=== PATIENT | male | born 1960 | race Caucasian/White ===

== ENCOUNTER 2023-11-07 06:13 | Day surgery (SDC) | payer BC, SELFPAY ==
--- NOTE | 2023-10-16 08:24 | CM ---
Addendum entered by Rosetta Orellana 11/06/23 06:50:
VN referral completed and sent to [facility] through [facility] with request for start of care on 11/09. Confirmation received of their ability to accept case within 24-48 hours of discharge. cost report clerk to fax discharge instructions to [facility] when
complete. [facility] fax: [phone].
Original Note:
Patient has a fractured proximal end of R humerus and is scheduled for a R Reverse TSA on 11/07/23. Spoke with patient prior to surgery. Introduced role of Orthopedic Navigator. Patient reports that he lives alone in a one story home. There is one
step to enter. Currently he functions independently. He occasionally wears a sling. He has a cane and shower seat. He was receiving VN services through [facility] at the time of our conversation. He has been in [facility] and [facility]. PCP
is Dr. Jostete Razo.
Discussed orthopedic program and post surgical plans. Reviewed anticipated length of stay and assistance that he may need at discharge. Explained that goal is for him to return home at discharge. Also reviewed MD follow up and transition to
outpatient therapy. Patient is in agreement with tentative plan and states that he will have support from multiple family members and will have someone stay with him. He will likely benefit from VN services at discharge.
Patient will complete online education.
Plan: Orthopedic Navigator will be involved in the care of patient after surgery and will reassess discharge needs at that time.
[2023-10-18 14:06] VITALS: BMI 32.2
[2023-10-18 15:31] VITALS: BMI 32.2
[2023-11-07] VITALS (12 sets, daily range): BP systolic 97–132; BP diastolic 56–97; PULSE 87–143; O2SAT 96; BMI 32.2
[2023-11-07] MEDS: NORMOSOL-R 1000 IV ×2 (07:18→11:22)
[2023-11-07] MEDS: VANCOCIN 300 ML IV (07:19)
[2023-11-07] MEDS: VANCOCIN 300 MG IV (07:19)
[2023-11-07] MEDS: TYLENOL 1000 MG PO (07:21)
[2023-11-07] MEDS: CELEBREX 200 MG PO (07:21)
[2023-11-07] MEDS: BACTROBAN NASAL 1 GRAM NASAL (07:22)
[2023-11-07] MEDS: CARDIZEM 15 MG PO (11:45)
--- NOTE | 2023-11-07 12:20 | PTCARENOTE ---
Patient admitted from pacu post right reverse total shoulder arthroplasty.Vital signs are stable.The Aquacell dressing in the right shoulder is clean and dry.The patient denies having any pain.Neurovascular assessment was within normal limits and
ongoing.The patient is in his bed with the call hensley.His family is at the bedside.
[2023-11-07] MEDS: SYNTHROID 25 MCG PO (12:45)
[2023-11-07] MEDS: VITAMIN B1 100 MG PO (12:45)
[2023-11-07] MEDS: FOLVITE 1 MG PO (12:45)
[2023-11-07] MEDS: VITAMIN D3 (cholecalciferol) 25 MCG PO (12:45)
--- NOTE | 2023-11-07 12:49 | CM ---
Reviewed chart and met with patient, brother and sister in law at bedside. Patient admitted from planned R REVERSE TSA. Confirmed information previously obtained for case management assessment and discuss discharge plans. The plan is for patient
to return home at discharge. He will have support from his family but no one will be living with him. He will have PT, OT and RN from [facility]. Referral sent and accepted by [facility].
Discussed MD follow up on 11/21/23.
The patient will use [facility] for discharge prescriptions.
PLAN: home with [facility]
--- NOTE | 2023-11-07 13:29 | CON.CAR ---
Addendum entered and electronically signed by Homer Addison MD 11/07/23 16:29:
63 yo male with PMH of persistent A fib admitted after orthopedic surgery. We are consulted for A fb with RVR post op. Patient had not taken diltiazem recently. No palps, SOB. Exam with irregular rhythm, no murmurs, no edema. Tele: A fib 110s.
Add diltiazem 120mg daily.
CHADS2-VASC = 0. OAC not indicated for his A fib.
Original Note:
Consultation
Consultation Request
Date/Time Consultation Requested: 11/07/23 13:19
Date/Time Consultation Performed: 11/07/23 13:45
Requesting Provider: Ashlie Graves PA-C
Performing Provider: CATARINA Avila for Dr. Addison
Reason for Consultation: Atrial fibrillation management
Medical History
-
Chief Complaint: Right humeral fracture
History of Present Illness:
Patient is a 63-year-old male (known to Dr. Gandhi, his primary product management consultant), with persistent atrial fibrillation (not on oral anticoagulation), dyslipidemia, hypothyroidism, tricuspid regurgitation, and prior alcohol misuse (with rehab
completion), who presented for right reverse TSA due to fracture of proximal end of right humerus today with Dr. Ramos. Atrial fibrillation rates were elevated and cardiology was consulted. He is on short acting diltiazem by his primary
product management consultant. He states this is due to long-acting being unaffordable. There are issues with compliance with a every 6 hour medication. He is not on oral anticoagulation.
Past Medical History
Past Medical History: Arrhythmias (Persistent atrial fibrillation), Hypercholesterolemia, Hypothyroidism, Valvular Disease (Moderate tricuspid regurgitation) and Other (Prior ETOH misuse)
Past Surgical History: Orthopedic (11/07/23)
Social History
Tobacco: Non-Smoker (Never smoker)
Alcohol: Former (No EtOH since 07/2023)
Drug: None
Employment: Retired
Family History
Family History: Reviewed & Not Pertinent
Allergies / Home Medications
Allergy/AdvReac Type Severity Reaction Status Date / Time
No Known Allergies Allergy Verified 11/07/23 07:14
Medication Instructions Recorded Confirmed Type
levothyroxine 25 mcg tablet 25 mcg PO DAILY 10/16/23 11/07/23 History
lidocaine 4 % topical patch 1 patch topical DAILYPRN PRN pain 10/16/23 10/18/23 History
(Lidocaine Pain Relief)
thiamine HCl (vitamin B1) 100 mg 100 mg PO DAILY 10/16/23 11/07/23 History
tablet
acetaminophen 500 mg tablet 1,000 mg PO BIDPRN PRN pain 10/18/23 11/07/23 History
(Tylenol Extra Strength)
cholecalciferol (vitamin D3) 25 25 mcg PO DAILY 10/18/23 11/07/23 History
mcg (1,000 unit) tablet
folic acid 1 mg tablet 1 mg PO DAILY 10/18/23 11/07/23 History
mupirocin 2 % topical ointment 1 applic intranasal BID #1 tube 10/18/23 Rx
diltiazem HCl 30 mg tablet 15 mg PO Q6H 11/03/23 11/07/23 History
Review of Systems
-
History Source: Patient
All other systems: Negative unless noted
Respiratory: No Symptoms
Cardiac: No Symptoms
Abdomen/GI: No Symptoms
Physical Exam
Vital Signs
Temp Pulse Resp BP Pulse Ox
97.6 F 127 16 132/72 97
11/07/23 12:13 11/07/23 12:13 11/07/23 12:13 11/07/23 12:13 11/07/23 12:45
Physical Exam
General: Well Developed, Well Nourished, No Apparent Distress and Comfortable
HEENT: Normocephalic, Anicteric and Moist Mucous Membranes
Respiratory: Clear and Non Labored Respirations
Cardiac: S1/S2 and Irregular Rhythm; Negative Peripheral Edema
Breast: Deferred by me
GI: Soft, Non Tender, Non Distended and Normal Bowel Sounds
Rectal: Deferred by Provider
Genito-urinary: No Costovertebral Tender
Musculoskeletal: No Clubbing, No Cyanosis and Other (Right arm in sling)
Skin: Warm and Dry
Neuro: AO x 3
Hematologic/Lymphatic: No Lymphadenopathy
Psych: Calm
Impression / Plan
-
Persistent atrial fibrillation
-Rates elevated, diltiazem 15 mg PO given in PACU
-He was on higher doses of short acting diltiazem in the past but had issues with hypotension
-Start Cardizem CD 120 mg, good Rx prices are affordable per patient
-Oral Anticoagulation: None per product management consultant, due to falls, ETOH, & coagulopathy
-[id number]: Score 0 (<del>Heart</del> <del>failure,</del> <del>HTN,</del> <del>age</del> <del>75</del> <del>or</del> <del>more,</del> <del>Diabetes</del> <del>Mellitus,</del> <del>prior</del> <del>Stroke/TIA,</del> <del>Vascular</del>
<del>disease,</del> <del>age</del> <del>65-74,</del> <del>female</del> <del>gender</del>)
Moderate tricuspid regurgitation (TTE 07/2023)
Hypothyroidism, on levothyroxine
Prior ETOH misuse, completed rehab 08/2023, no alcohol consumption since rehab, I congratulated him on his efforts
Coagulopathy, likely underlying liver disease, PCP note reflects referral to GI
Obesity, BMI 32, he would benefit from weight loss
Data Reviewed
-
Labs: Labs Reviewed by me
Old Records: Reviewed
--- NOTE | 2023-11-07 13:56 | W.PN.ORTHO ---
Today's Communication / Plan
-
D/c when clinically stable
Assessment
.
Distal Motor Intact: Yes
Dressing:
Clean, dry and intact.
Assessment:
Fracture of proximal end of right humerus s/p R Reverse IZZY w/ Dr Ramos 11/07/23
DVT prophylaxis - ASA, b/l venous foot pumps
HTN w/ recent medication induced hypotension - + BP parameters to Diltiazem - monitor BP
Atrial fibrillation, recently diagnosed in 07/2023 - monitor on tele
- Pt did NOT take Diltiazem this morning as he was advised - STAT dose given in PACU
- Diltiazem dosing recently decreased from 60 q6h to 15 q6h per PCP due to significant hypotension
- Given current HRs at rest and ongoing changes to medication regimen, will order EKG and consult cardiology for further medical management
- No current oral anticoagulation. Will await cardio's recs regarding this
Chronic mild anemia - non-invasive hgb in AM
Hypertriglyceridemia
Moderate tricuspid regurgitation
Fatty liver disease
Hypothyroidism
COVID-19, 08/2023, without residual side effects
Thrombocytopenia
Hyponatremia - on oral supplementation
Mild hypercalcemia.
Obesity, BMI 32.2.
Previous alcohol use disorder requiring inpatient rehab 08/2023. No reported alcohol since
Plan
.
Surgery / Date: R Reverse IZZY w/ Dr Ramos 11/07/23
DVT Prophylaxis: Aspirin
Activity:
Out of bed.
PT/OT
Discharge Plan: Home
Subjective
.
.:
Patient resting comfortably in bed.
R shoulder pain minimal currently.
Denies any new significant complaints.
Notably in a fib - HRs averaging 110-130s at rest.
Vital Signs and Labs
.
Vital Signs and Labs:
Temp Pulse Resp BP Pulse Ox
98.7 F 108 16 107/73 97
11/07/23 11:44 11/07/23 11:44 11/07/23 11:30 11/07/23 11:30 11/07/23 11:30
Physical Exam
-
HEENT: No pallor, cyanosis, or jaundice. Throat clear.
NECK: Supple. No JVD.
RESPIRATORY: Lungs clear to auscultation.
CVS: Irregular irregular.
ABDOMEN: Soft, non-tender. No distension. Obese.
EXTREMITIES: + RUE sling. Able to wiggle fingers b/l. Good security shift manager strength. Strength equal, no calf pain with palpation/dorsiflexion. Calves soft.
EXECUTIVE ACCOUNT MANAGER: AOx3. No focal deficits. ornamental plasterer helper grossly intact
[2023-11-07] MEDS: CARDIZEM CD 120 MG PO (14:05)
[2023-11-07] MEDS: ANCEF 5 IV ×2 (17:08→23:03)
[2023-11-07] MEDS: TYLENOL 650 MG PO ×2 (17:08→23:03)
[2023-11-07] MEDS: ASPIRIN 325 MG PO (17:10)
[2023-11-07] MEDS: VANCOCIN 200 IV (20:01)
[2023-11-07] MEDS: BACTROBAN 2% OINTMENT 1 APPLIC NASAL (20:02)
[2023-11-07] MEDS: TYLENOL PO (21:00)
[2023-11-08 03:30] VITALS: BP 112/62
[2023-11-08] MEDS: TYLENOL 650 MG PO ×3 (03:45→11:29)
--- NOTE | 2023-11-08 05:11 | PTCARENOTE ---
Pt ambulated w standby assist to toilet to void. No difficulty noted, pt reports no pain at this time. Assessment ongoing.
[2023-11-08] MEDS: SYNTHROID 25 MCG PO (06:13)
[2023-11-08] MEDS: CARDIZEM CD 120 MG PO (08:02)
[2023-11-08] MEDS: CELEBREX 200 MG PO (08:02)
[2023-11-08] MEDS: FLORASTOR 250 MG PO (08:02)
[2023-11-08] MEDS: ASPIRIN 325 MG PO (08:02)
[2023-11-08] MEDS: KEFLEX 500 MG PO (08:03)
[2023-11-08] MEDS: VITAMIN B1 100 MG PO (08:03)
[2023-11-08] MEDS: VITAMIN D3 (cholecalciferol) 25 MCG PO (08:03)
[2023-11-08] MEDS: FOLVITE 1 MG PO (08:03)
[2023-11-08] MEDS: BACTROBAN 2% OINTMENT 1 APPLIC NASAL (08:04)
--- NOTE | 2023-11-08 09:10 | W.PN.ORTHO ---
Today's Communication / Plan
-
Await further recs from Cardio.
Work w/ OT this AM.
D/c possible for later today if clinically stable.
Assessment
.
Distal Motor Intact: Yes
Dressing:
Clean, dry and intact.
Assessment:
Fracture of proximal end of right humerus s/p R Reverse TSA w/ Dr Ramos 11/07/23
- Pt will need Keflex 500 mg q6h x1 week upon d/c; script sent yesterday by Cliff Shoemaker PA-C. Will encourage OTC probiotic while on this
DVT prophylaxis - ASA, b/l venous foot pumps
HTN w/ recent medication induced hypotension - BPs stable
Atrial fibrillation, recently diagnosed in 07/2023 - continue to monitor on tele
- Pt did NOT take Diltiazem AM of surgery as advised - STAT Diltiazem 15 mg given in PACU
- Diltiazem dosing recently decreased from 60 q6h to 15 q6h per PCP due to significant hypotension
- Diltiazem switched from 15 mg q6h to Diltiazem ER 120 mg daily per cardio. Appreciate their help w/ this. Pt apparently was offered this medication previously but could not afford it ('over 100 bucks per month'). Pricing may be more affordable w/
[facility]
- Will await on cardio for further recs prior to d/c
Chronic mild anemia - non-invasive hgb 13.9 POD 1
Hypertriglyceridemia
Moderate tricuspid regurgitation
Fatty liver disease
Hypothyroidism
COVID-19, 08/2023, without residual side effects
Thrombocytopenia
Hyponatremia - on oral supplementation
Mild hypercalcemia.
Obesity, BMI 32.2.
Previous alcohol use disorder requiring inpatient rehab 08/2023. No reported alcohol since
Plan
.
Surgery / Date: R Reverse TSA w/ Dr Ramos 11/07/23
DVT Prophylaxis: Aspirin
Activity:
Out of bed.
PT/OT
Discharge Plan: Home
Subjective
.
.:
Patient resting comfortably in bed this AM.
R shoulder pain minimal and currently well tolerated.
Denies any new significant complaints.
HRs overall improving w/ switch to Diltiazem ER.
Eager for potential d/c today.
Vital Signs and Labs
.
Vital Signs and Labs:
Temp Pulse Resp BP Pulse Ox
97.5 F 132 16 107/52 95
11/08/23 03:30 11/08/23 08:02 11/08/23 03:30 11/08/23 08:02 11/08/23 03:30
Non-invasive Hgb result: 13.9
Physical Exam
-
HEENT: No pallor, cyanosis, or jaundice. Throat clear.
NECK: Supple. No JVD.
RESPIRATORY: Lungs clear to auscultation.
CVS: Irregular irregular.
ABDOMEN: Soft, non-tender. No distension. Obese.
EXTREMITIES: + RUE sling. Able to wiggle fingers b/l. Good observation assistant strength b/l. Strength equal, no calf pain with palpation/dorsiflexion. Calves soft.
ONCOLOGY PHYSICIAN ASSISTANT: AOx3. No focal deficits. forest economist grossly intact
--- NOTE | 2023-11-08 09:30 | CM ---
Addendum entered by SIDDHARTH Garza 11/08/23 10:01:
Provided written information on cost of Diliatzem 120 mg Er (cd) to patient. He feels he will use his [facility] with the [facility]. Explained to him that he will need to download [facility] rx on his phone or go to website
Addendum entered by SIDDHARTH Garza 11/08/23 09:42:
FAX d.c paperwork to [facility] at FAX [phone].
Original Note:
Reviewed chart and met with patient at bedside. Patient admitted from planned R REVERSE TSA. Confirmed information previously obtained for case management assessment and discuss discharge plans. The plan is for patient to return home at
discharge. He will have support from his family but no one will be living with him. He will have PT, OT and RN from [facility]. Referral updated to [facility].
Discussed MD follow up on 11/21/23.
The patient will use [facility] for discharge prescriptions.
OT to see today. Awaiting clearance from cardiology for discharge.
PLAN: home with [facility]
--- NOTE | 2023-11-08 10:30 | W.PN.CD ---
Addendum entered and electronically signed by Homer Addison MD 11/08/23 11:42:
63 yo male with persistent A fib admitted following orthopedic surgery. A fib rates were elevated post op. No palps. Exam: irregular rhythm, no murmus, no edema. Tele: A fib 90s at rest.
Stable for discharge from cardiac perspective on diltiazem 120mg daily.
CHADS2-VASC =0. No OAC.
Original Note:
Today's Communication / Plan
-
continue Cardizem CD 120mg daily
follow up with his outpatient qa intern for continued management of Afib
stable for d/c from cardiac standpoint
Impression / Plan
-
Persistent atrial fibrillation - asymptomatic
-Rates improved with additional Diltiazem yesterday in the PACU
-Stable rates on Cardizem CD 120mg daily, continue
-He was on higher doses of short acting diltiazem in the past but had issues with hypotension
-Continue Cardizem CD 120 mg, good Rx prices are affordable per patient
-Oral Anticoagulation: None per qa intern, due to falls, ETOH, & coagulopathy
-[id number]: Score 0 (<del>Heart</del> <del>failure,</del> <del>HTN,</del> <del>age</del> <del>75</del> <del>or</del> <del>more,</del> <del>Diabetes</del> <del>Mellitus,</del> <del>prior</del> <del>Stroke/TIA,</del> <del>Vascular</del>
<del>disease,</del> <del>age</del> <del>65-74,</del> <del>female</del> <del>gender</del>)
Moderate tricuspid regurgitation (TTE 07/2023)
Hypothyroidism, on levothyroxine
Prior ETOH misuse, completed rehab 08/2023, no alcohol consumption since rehab
Coagulopathy, likely underlying liver disease, PCP note reflects referral to GI
Obesity, BMI 32, he would benefit from weight loss
Physical Exam
Vital Signs/Labs
Vital Signs
Temp Pulse Resp BP Pulse Ox
97.5 F 132 16 107/52 95
11/08/23 03:30 11/08/23 08:02 11/08/23 03:30 11/08/23 08:02 11/08/23 03:30
Physical Exam
Constitutional: No acute distress
EENT: Anicteric and Moist mucous membranes
Cardiovascular: Rhythm/rate is irregular
Respiratory: Respiratory effort normal
GI: Soft and Normal bowel sounds
Neuro/Psych: AO x 3
Other: Skin (warm, dry)
Data Reviewed
-
Date of Service: November 08, 2023
Medical Decision Making: Reviewed Test Results
EKG: Tracing Personally Visualized and interpreted
Labs: Labs Reviewed by me
Old Records: Reviewed
--- NOTE | 2023-11-08 10:50 | W.DS.TRANS ---
DC Summary - Senior Rd Engineer
-
Discharge Instructions:
Sleep Apnea Risk Intermediate
Discharge Diagnosis/Procedures Fracture of proximal end of right humerus s/p
right reverse TSA w/ Dr Ramos 11/07/23
Diet Regular
Activity As tolerated
Additional Activity Non-weightbearing right upper extremity
Driving Restrictions Not until seen by your Dr
Bathing Restrictions OK to Shower
Wound Care Leave dressing on until seen by surgeon's office
for follow-up in 2 weeks.
Instructions:
Stand-Alone Forms: Total Shoulder Replacement D/C
Changes to Home Medications: Yes
Discharge Medications:
DC Medications w/original date entered in [employer]
levothyroxine 25 mcg tablet 25 mcg PO DAILY 10/16/23
thiamine HCl (vitamin B1) 100 mg tablet 100 mg PO DAILY 10/16/23
cholecalciferol (vitamin D3) 25 mcg (1,000 unit) tablet 25 mcg PO DAILY 10/18/23
folic acid 1 mg tablet 1 mg PO DAILY 10/18/23
mupirocin 2 % topical ointment 1 applic intranasal BID #1 tube 10/18/23
sodium chloride 1,000 mg soluble tablet 1,000 mg PO DAILY 11/07/23
Saccharomyces boulardii 250 mg capsule 250 mg PO BID #14 caps 11/08/23
acetaminophen 500 mg tablet (Tylenol Extra Strength) 1,000 mg PO Q6H #0 tabs 11/08/23
aspirin 325 mg tablet 325 mg PO DAILY #30 tabs 11/08/23
celecoxib 200 mg capsule 200 mg PO DAILY inflammation #14 caps 11/08/23
cephalexin 500 mg capsule 500 mg PO Q6H infection prevention #20 caps 11/08/23
diltiazem HCl 120 mg capsule,extended release 24 hr 120 mg PO DAILY #30 caps 11/08/23
docusate sodium 100 mg capsule 100 mg PO BID #30 caps 11/08/23
famotidine 20 mg tablet 20 mg PO HS #30 tabs 11/08/23
ondansetron HCl 4 mg tablet 4 mg PO Q6H PRN nausea and vomiting #30 tabs 11/08/23
oxycodone 5 mg tablet 5 mg PO Q6H PRN moderate-severe pain #30 tabs 11/08/23
sennosides 8.6 mg tablet (Senna Lax) 17.2 mg PO BID #30 tabs 11/08/23
Home Medication Changes
Saccharomyces boulardii 250 mg capsule 250 mg PO BID #14 caps 11/08/23
acetaminophen 500 mg tablet (Tylenol Extra Strength) 1,000 mg PO Q6H #0 tabs 11/08/23
aspirin 325 mg tablet 325 mg PO DAILY #30 tabs 11/08/23
celecoxib 200 mg capsule 200 mg PO DAILY inflammation #14 caps 11/08/23
cephalexin 500 mg capsule 500 mg PO Q6H infection prevention #20 caps 11/08/23
diltiazem HCl 120 mg capsule,extended release 24 hr 120 mg PO DAILY #30 caps 11/08/23
docusate sodium 100 mg capsule 100 mg PO BID #30 caps 11/08/23
famotidine 20 mg tablet 20 mg PO HS #30 tabs 11/08/23
ondansetron HCl 4 mg tablet 4 mg PO Q6H PRN nausea and vomiting #30 tabs 11/08/23
oxycodone 5 mg tablet 5 mg PO Q6H PRN moderate-severe pain #30 tabs 11/08/23
sennosides 8.6 mg tablet (Senna Lax) 17.2 mg PO BID #30 tabs 11/08/23
Pending Results: No
[2023-11-08 11:07] VITALS: BP 96/55
[2023-11-08 11:15] VITALS: BP 96/55; PULSE 113; O2SAT 97
== END 2023-11-08 12:00 | disposition home or self-care (01) ==
LOC: SDS 06:13
PROVIDERS: ATTENDING PHYSICIAN Specialist; CONSULT PHYSICIAN Internal Medicine; FAMILY PHYSICIAN Internal Medicine; OTHER PHYSICIAN Internal Medicine; OTHER PHYSICIAN Physician Assistant
DX: S42.291A Other displaced fracture of upper end of right humerus, initial encounter for closed fracture (principal); X58.XXXA Exposure to other specified factors, initial encounter
CPT/HCPCS: 23472; C1776; 36415; 73020; 86850; 86900; 86901; 87070; 93005; 97110; 97166; 97535; C1713